=== PATIENT | female | born 2000 | race Caucasian/White ===

== ENCOUNTER 2020-09-22 20:08 | Emergency (ER) | payer BC ==
[~2020-09-22] VITALS: Ht 162.6 cm; Wt 56.4 kg
[2020-09-22 20:14] VITALS: TEMP 97.5
[2020-09-22 20:43] LABS: BASO % 0.1 % (0.0-2.0); EOS # 0.4 (0.0-0.7); EOS % 4.4 % (0-4.0); GRAN # 6.4 (1.4-6.5); GRAN % 70.8 % (42.2-75.2); HEMOGLOBIN 10.2 g/dl (12.5-16.0); LYMPH # 1.4 (1.2-3.4); LYMPH % 15.2 % (20.0-51.0); MEAN CELL VOLUME 70 fl (80.0-100.0); MEAN CORPUSCULAR HEMOGLOBIN 21 pg (27.0-31.0); MEAN CORPUSCULAR HGB CONC 29 g/dl (33.0-37.0); MONO # 0.8 (0.1-0.6); MONO % 9.3 % (1.7-9.3); PLATELET COUNT 302 K/mm3 (130-400); RED BLOOD COUNT 4.93 M/mm3 (4.10-5.30); REDCELL DISTRIBUTION WIDTH-CV 19.3 % (11.5-14.5)
[2020-09-22 20:55] LABS: ALANINE AMINOTRANSFERASE 27 U/L (4-34); ALBUMIN 3.8 gm/dL (3.5-5.0); ALKALINE PHOSPHATASE 70 U/L (50-136); ANION GAP 8 mmol/L (7-16); AST,SGOT 36 U/L (15-37); BILIRUBIN,TOTAL < 0.1 mg/dL (0.0-1.0); BLOOD UREA NITROGEN 8 mg/dL (7-17); CALCIUM 8.3 mg/dL (8.4-10.2); CARBON DIOXIDE 23 mmol/L (22-30); CHLORIDE 106 mmol/L (98-107); CREATININE, serum 0.62 (0.52-1.25); GLUCOSE 92 mg/dL (74-106); LIPASE 99 U/L (23-300); POTASSIUM 3.5 mmol/L (3.4-5.0); SODIUM 136 mmol/L (137-145); TOTAL PROTEIN 6.8 gm/dL (6.4-8.2)
[2020-09-22 20:56] LABS: COLLECTION METHOD CLEAN CATCH
[2020-09-22 21:06] LABS: MUCOUS Present /lpf; PH 6 (5-8); SQUAMOUS EPITHELIAL 0-2 /hpf; URINE APPEARANCE Hazy; URINE BACTERIA None Seen /hpf; URINE BILIRUBIN Negative (NEGATIVE); URINE BLOOD 3+ (NEGATIVE); URINE COLOR Yellow; URINE GLUCOSE Negative (NEGATIVE); URINE KETONE Negative (NEGATIVE); URINE LEUKOCYTE ESTERASE Trace (NEGATIVE); URINE NITRATE Negative (NEGATIVE); URINE PROTEIN(semi-quant) 2+ (NEGATIVE); URINE RBC >50 /hpf; URINE UROBILINOGEN Negative (NEGATIVE)
[2020-09-22 21:07] LABS: HEMATOCRIT 34.7 % (37.0-47.0)
[2020-09-22] MEDS ORDERED: PYRIDIUM 100MG100 MG PO (21:29)
[2020-09-22] MEDS ORDERED: CEPHALEXIN500 M1 PO (21:29)
[2020-09-22 21:55] VITALS: BP 104/57; PULSE 71
[2020-09-24] MEDS ORDERED: ADDERALL10 MG PO (15:34)
[2020-09-24] MEDS ORDERED: LEXAPRO 10MG10 MG PO (15:34)
== END 2020-09-22 22:08 | disposition home or self-care (01) ==
LOC: COL.ER 20:08
PROVIDERS: Emergency Medicine
DX: N39.0 Urinary tract infection, site not specified (principal); Z32.02 Encounter for pregnancy test, result negative
CPT/HCPCS: J0696; J2270; J2405; J7030

== ENCOUNTER 2020-10-03 16:00 | Outpatient (RCR) | payer BC ==
[2020-09-24 15:35] VITALS: BP 107/52; PULSE 80; TEMP 98.1
[2020-09-26 16:21] VITALS: BP 108/52; PULSE 82; TEMP 98.9
[2020-09-29 16:19] VITALS: BP 107/67; PULSE 90; TEMP 98.8
[2020-10-01 16:33] VITALS: BP 95/62; PULSE 96; TEMP 98
[~2020-10-03] VITALS: Ht 162.6 cm; Wt 59.3 kg
[2020-10-03 16:59] VITALS: BP 88/52; PULSE 77; TEMP 98.2
== END 2020-10-03 20:22 ==
LOC: EUO 16:00
DX: D50.9 Iron deficiency anemia, unspecified (principal); Z79.899 Other long term (current) drug therapy
CPT/HCPCS: J1756

== ENCOUNTER → 2020-10-03 | Outpatient (CLI) | payer BC ==
[~2020-10-03] MED LIST: ADDERALL10 MG PO; CEPHALEXIN500 M1 PO; LEXAPRO 10MG10 MG PO; PYRIDIUM 100MG100 MG PO
== END ==
LOC: COL.RAD 09:45
DX: N94.6 Dysmenorrhea, unspecified (principal)

== ENCOUNTER 2021-12-17 15:30 | Outpatient (RCR) | payer BC ==
--- NOTE | 2021-12-03 16:04 | NUR ---
Pt refuwsed tylenol and benadry pretreatment.
[2021-12-03 16:06] VITALS: BP 93/57; PULSE 77; TEMP 98.6
[2021-12-10 16:01] VITALS: BP 103/57; PULSE 91; TEMP 98.9
[~2021-12-17] VITALS: Ht 162.6 cm; Wt 55.8 kg
[2021-12-17 15:56] VITALS: BP 99/64; PULSE 82; TEMP 97.9
== END 2021-12-17 16:40 | disposition home or self-care (01) ==
LOC: EUO 15:30
DX: Z51.81 Encounter for therapeutic drug level monitoring (principal)
CPT/HCPCS: J1756